=== PATIENT | male | born 1985 ===

== ENCOUNTER 2020-10-09 08:44 | Emergency (ER) | payer BC ==
[2020-10-09] MEDS ORDERED: Lactated Ringers 1,000 ML IV ONE (09:01)
[2020-10-09] MEDS ORDERED: Ondansetron 4 MG/2 ML SDV IVPUSH ONE (09:01)
[2020-10-09] MEDS: Morphine 4 MG/ML Syringe IVPUSH ONE ×2 (09:27→09:28)
[2020-10-09] MEDS ORDERED: Lactated Ringers 1,000 ML IV SCH (09:30)
--- NOTE | 2020-10-09 09:51 | CR ---
INDICATION: Recurrent emesis TECHNIQUE: Chest 1 view COMPARISON: None FINDINGS: Cardiovascular and mediastinum: Heart size and vasculature are normal in caliber and appearance. Lungs and pleural spaces: Lungs are clear. No sign of infiltrate or mass. No sign of pleural effusion. No pneumothorax. Bones and soft tissues: No significant findings. IMPRESSION: No acute or significant findings. Dictated by David Morales MD @ 10/09/2020 9:49:[address] David Morales @ Oct 09 2020 9:49AM
[2020-10-09 09:57] LABS: BLOOD UREA NITROGEN,BUN 13 mg/dL (7.0-18.0); CARBON DIOXIDE,CO2 19.8 mmol/L (21.0-32.0); CHLORIDE,CL 105 mmol/L (98-107); GLUCOSE RANDOM 139 mg/dL (74-106); LIPASE 81 U/L (73-393); POTASSIUM,K 4.4 mmol/L (3.5-5.1); SODIUM,NA 145 mmol/L (136-148)
[2020-10-09] MEDS ORDERED: Prochlorperazine 10 MG/2 ML SDV IVPUSH ONE (10:06)
--- NOTE | 2020-10-09 10:18 | EDM.PDOC ---
ED HPI GENERAL MEDICAL PROBLEM - General Chief Complaint: Abdominal Pain Stated Complaint: vomitting blood Time Seen by Provider: 10/09/20 08:55 Source of Information: Reports: Patient, Family - History of Present Illness INITIAL COMMENTS - FREE TEXT/NARRATIVE: Otherwise well 35-year-old male without prior medical or surgical history no drug or alcohol use he is presenting with dry heaves nausea and vomiting since yesterday not able to tolerate any p.o. intake. No abdominal pain some dizziness and lightheadedness but no syncope. He denies chest pain he denies fever he denies cough. He denies sick contact. No alleviating factors radiation or other associated symptoms. Symptoms currently moderate to severe. abdomen Pain Score (Numeric/FACES): 8 - Related Data Allergies Allergy/AdvReac Type Severity Reaction Status Date / Time No Known Allergies Allergy Verified 10/09/20 08:59 Home Meds: Home Meds Prochlorperazine Maleate [Compazine] 10 mg PO TID PRN 3 Days #9 tablet 10/09/20 [Rx] Past Medical History Musculoskeletal History: Reports: None Neurological History: Reports: Other (See Below) Other Neuro History: [place] - Infectious Disease History Infectious Disease History: Reports: Chicken Pox - Past Surgical History Neurological Surgical History: Reports: None Musculoskeletal Surgical History: Reports: Other (See Below) Other Musculoskeletal Surgeries/Procedures:: L shoulder Social & Family History - Family History Family Medical History: No Pertinent Family History - Tobacco Use Tobacco Use Status *Q: Never Tobacco User Second Hand Smoke Exposure: No - Caffeine Use Caffeine Use: Reports: None - Recreational Drug Use Recreational Drug Use: No ED ROS GENERAL - Review of Systems Review Of Systems: See Below Free Text/Narrative/Comment: General: No fever. Skin: No rash. Eyes: No vision problems. ENT: No sore throat. Neck: No neck stiffness. Respiratory: No shortness of breath. Cardiac: No chest pain. Gastrointestinal: Per HPI Urinary: No dysuria. Musculoskeletal: No myalgias/arthralgias. Neurologic: No headache. ED EXAM, GENERAL - Physical Exam Exam: See Below Free Text/Narrative:: General Appearance: No acute distress, appears comfortable Skin: No rash HEENT: Normocephalic/atraumatic, sclera anicteric, mucous membranes dry Neck: Normal range of motion Chest and Lungs: Bilateral breath sounds, clear to auscultation Cardiovascular: Regular rate and rhythm, no murmur Abdomen: Soft, non-tender Back: Normal Musculoskeletal: No edema or tenderness Neurologic: Awake, alert, no obvious deficits, moving all extremities Psychiatric: Appropriate, cooperative Course - Vital Signs Last Recorded V/S: Last Vital Signs Temp 96.4 F L 10/09/20 08:51 Pulse 77 10/09/20 09:30 Resp 16 10/09/20 09:30 BP 133/76 10/09/20 09:30 Pulse Ox 95 10/09/20 09:30 - Orders/Labs/Meds Orders: Active Orders 24 hr Category Date Time Status Lactated Ringers [Ringers, Lactated] 1,000 ml Med 10/09/20 09:30 Active IV ASDIRECTED Medication Orders Lactated Ringer's (Ringers, Lactated) 1,000 mls @ 999 mls/hr IV ASDIRECTED LILO Last Admin: 10/09/20 10:12 Dose: 999 mls/hr Documented by: ALFREDO Labs: Laboratory Tests 10/09/20 10/09/20 Range/Units 09:13 09:13 WBC 7.56 (4.0-11.0) K/uL RBC 5.45 (4.50-5.90) M/uL Hgb 17.3 H (13.0-17.0) g/dL Hct 49.0 (38.0-50.0) % MCV 89.9 (80.0-98.0) fL MCH 31.7 (27.0-32.0) pg MCHC 35.3 (31.0-37.0) g/dL RDW Std Deviation 40.5 (28.0-62.0) fl RDW Coeff of Lupe 12 (11.0-15.0) % Plt Count 305 (150-400) K/uL MPV 9.70 (7.40-12.00) fL Neut % (Auto) 66.5 (48.0-80.0) % Lymph % (Auto) 24.2 (16.0-40.0) % [place] % (Auto) 7.8 (0.0-15.0) % Eos % (Auto) 0.8 (0.0-7.0) % Baso % (Auto) 0.7 (0.0-1.5) % Neut # (Auto) 5.0 (1.4-5.7) K/uL Lymph # (Auto) 1.8 (0.6-2.4) K/uL [place] # (Auto) 0.6 (0.0-0.8) K/uL Eos # (Auto) 0.1 (0.0-0.7) K/uL Baso # (Auto) 0.1 (0.0-0.1) K/uL Nucleated RBC % 0.0 /100WBC Nucleated RBCs # 0 K/uL Sodium 145 (136-148) mmol/L Potassium 4.4 (3.5-5.1) mmol/L Chloride 105 (98-107) mmol/L Carbon Dioxide 19.8 L (21.0-32.0) mmol/L BUN 13 (7.0-18.0) mg/dL Creatinine 1.2 (0.8-1.3) mg/dL Est Cr Clr Drug Dosing 89.56 mL/min Estimated GFR (MDRD) > 60.0 ml/min Glucose 139 H (74-106) mg/dL Calcium 8.6 (8.5-10.1) mg/dL Total Bilirubin 0.8 (0.2-1.0) mg/dL AST 62 H (15-37) IU/L ALT 70 H (14-63) IU/L Alkaline Phosphatase 60 (46-116) U/L Total Protein 7.9 (6.4-8.2) g/dL Albumin 4.0 (3.4-5.0) g/dL Globulin 3.9 (2.6-4.0) g/dL Albumin/Globulin Ratio 1.0 (0.9-1.6) Lipase 81 (73-393) U/L Meds: Medications Generic Name Dose Route Start Last Admin Trade Name Freq PRN Reason Stop Dose Admin Lactated Ringer's 1,000 mls @ 999 mls/hr 10/09/20 09:30 10/09/20 10:12 Ringers, Lactated IV 999 mls/hr ASDIRECTED LILO Administration Discontinued Medications Generic Name Dose Route Start Last Admin Trade Name Freq PRN Reason Stop Dose Admin Lactated Ringer's 1,000 mls @ 999 mls/hr 10/09/20 09:01 10/09/20 09:27 Ringers, Lactated IV 10/09/20 10:01 999 mls/hr .BOLUS ONE Administration Morphine Sulfate 4 mg 10/09/20 09:01 10/09/20 09:28 Morphine 4 Mg/Ml Syringe IVPUSH 10/09/20 09:02 Not Given ONETIME ONE Ondansetron HCl 4 mg 10/09/20 09:01 10/09/20 09:27 Ondansetron 4 Mg/2 Ml Sdv IVPUSH 10/09/20 09:02 4 mg ONETIME ONE Administration Prochlorperazine Edisylate 10 mg 10/09/20 10:06 10/09/20 10:10 Prochlorperazine 10 Mg/2 Ml Sdv IVPUSH 10/09/20 10:07 10 mg ONETIME ONE Administration Departure - Departure Time of Disposition: 11:23 Disposition: Home, Self-Care 01 Condition: Good Clinical Impression: Gastroenteritis - Discharge Information *PRESCRIPTION DRUG MONITORING PROGRAM REVIEWED*: Not Applicable *COPY OF PRESCRIPTION DRUG MONITORING REPORT IN PATIENT ALEJANDRA: Not Applicable Prescriptions: Prochlorperazine Maleate [Compazine] 10 mg PO TID PRN 3 Days #9 tablet PRN Reason: Nausea/Vomiting Instructions: Nausea and Vomiting, Adult, [id number] Forms: ED Department Discharge Additional Instructions: Your symptoms should improve over the next few days. If you continue to have trouble with nausea or vomiting please use the Compazine prescription. If you develop worsening abdominal pain fever or unable to keep liquids down please return to the ER. Otherwise please follow-up with your primary care doctor. If you do not have a primary care doctor you can follow-up with one of the primary clinics listed below. [facility] [address] [place] [address] [id number] [address] [address] The following information is given to patients seen in the emergency department who are being discharged to home. This information is to outline your options for follow-up care. We provide all patients seen in our emergency department with a follow-up referral. The need for follow-up, as well as the timing and circumstances, are variable depending upon the specifics of your emergency department visit. If you don't have a primary care physician on staff, we will provide you with a referral. We always advise you to contact your personal physician following an emergency department visit to inform them of the circumstance of the visit and for follow-up with them and/or the need for any referrals to a consulting specialist. The emergency department will also refer you to a specialist when appropriate. This referral assures that you have the opportunity for follow-up care with a specialist. All of these measure are taken in an effort to provide you with optimal care, which includes your follow-up. Under all circumstances we always encourage you to contact your private physician who remains a resource for coordinating your care. When calling for follow-up care, please make the office aware that this follow-up is from your recent emergency room visit. If for any reason you are refused follow-up, please contact the Emergency Department at and asked to speak to the emergency department charge nurse. Sepsis Event Note (ED) - Evaluation Sepsis Screening Result: No Definite Risk - Focused Exam Vital Signs: Vital Signs Temp Pulse Resp BP Pulse Ox 10/09/20 09:30 77 16 133/76 95 10/09/20 08:51 96.4 F L 82 17 128/87 97 - My Orders Last 24 Hours: My Active Orders 10/09/20 09:30 Lactated Ringers [Ringers, Lactated] 1,000 ml IV ASDIRECTED - Assessment/Plan Last 24 Hours: My Active Orders 10/09/20 09:30 Lactated Ringers [Ringers, Lactated] 1,000 ml IV ASDIRECTED Assessment:: Otherwise well 35-year-old male presenting with clear signs of dehydration given dry mucous membranes and IV fluids will be ordered. Signs and symptoms most consistent with a gastritis. He does have some small amount of blood-streaked emesis at this time but no coffee ground emesis no danay blood this most likely represents Laura-Correia injury or gastritis. And Zofran were initially ordered he continues to have some emesis and so Compazine was added. Patient abdominal exam is benign and he has no abdominal pain. Given this there is no unexplained leukocytosis or other concerning finding on labs would not pursue CT imaging at this point. Could trial GI cocktail if labs unremarkable. 1045: Patient's labs demonstrate significant dehydration with low bicarb and hemoconcentration. Patient has had significant symptom improvement with IV fluids and Compazine. He did not experience improvement with Zofran. Given the severity of his dehydration a second liter of fluid is ongoing with an option for third. He has no abdominal pain and no abdominal tenderness on exam given this I do not think abdominal imaging is indicated at this time. He likely does have a viral gastroenteritis. If patient continues to improve anticipate discharge with home care. 1120: Patient feels much better after a second bag of IV fluid. He has tolerated p.o. He is comfortable going home return precaution discussed and understood.
== END 2020-10-09 11:45 | disposition home or self-care (01) ==
LOC: MW.ED 08:44
DX: K52.9 Noninfective gastroenteritis and colitis, unspecified (principal)
CPT/HCPCS: 36415; 71045; 80053; 83690; 85025; 96374; 96375; 99284; J0780; J2405; J7120; 99283; J2270

== ENCOUNTER 2021-07-29 21:30 | Emergency (ER) | payer BC, OTHER | END 2021-07-29 22:08 | disposition home or self-care (01) | LOC: MW.ED 21:30 | DX: F10.129 Alcohol abuse with intoxication, unspecified (principal) | CPT/HCPCS: 99283 ==